=== PATIENT | female | born 1975 | race Two or more races ===

== ENCOUNTER 2016-11-17 19:15 | Emergency (ER) | payer MEDICAID ==
[~2016-11-17] VITALS: Ht 157.5 cm; Wt 68.0 kg
[~2016-11-17 19:15] MED LIST: BENAZEPRIL HCL20 MG ORAL; IBUPROFEN600 MG ORAL; PERCOCET 5-3251 EACH ORAL; TENORMIN50 MG ORAL
[2016-11-17 19:50] VITALS: BP 168/96
[2016-11-17] MEDS ORDERED: Tylenol #3 tab (300mg/30mg) PO ONE (20:00)
[2016-11-17 21:15] VITALS: BP 148/90
[2016-11-17] MEDS ORDERED: CYCLOBENZAPRINE10 MG ORAL (21:18)
[2016-11-17] MEDS ORDERED: IBUPROFEN600 MG ORAL (21:18)
[2016-11-17] MEDS ORDERED: OFLOXACIN5 ML BOTH EARS (21:25)
[2016-11-17 21:37] VITALS: BP 142/86
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
--- NOTE | 2016-11-18 10:49 | Diagnostic Imaging Report ---
Indication: Pain and trauma Technique: Continuous helical imaging of the cervical spine was obtained transaxially from the skull base to the upper thoracic spine. 2-D coronal and sagittal reformatted images were obtained. Total Dose length Product (DLP): [address] Dose Index Volume (CTDIvol): 16.47, 0.25 mGy Comparison: None Findings: There is no acute fracture or malalignment identified. There is no soft tissue swelling identified. 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 Some of the intervertebral discs show mild narrowing. Impression: No acute injury Mild spondylosis The CT scanner at [facility] is accredited by the [employer] and the scans are performed using dose optimization techniques as appropriate to a performed exam including Automatic Exposure control.
--- NOTE | 2016-11-18 11:35 | Diagnostic Imaging Report ---
Indication: Dyspnea Comparison: None A single view chest radiograph was obtained. Findings: Cardiomediastinal appearance is within normal limits for age. Pulmonary vascularity is appropriate. The diaphragmatic contour is smooth and costophrenic angles are sharp. No pleural effusions are identified. The bones are unremarkable. Impression: No acute findings
--- NOTE | 2016-11-18 11:36 | Diagnostic Imaging Report ---
Indication: Pain Findings: 3 views of the left shoulder were obtained. Alignment of the left shoulder is normal. No acute fracture is identified. Soft tissues are unremarkable. Impression: Negative left shoulder examination
--- NOTE | 2016-11-18 11:39 | Diagnostic Imaging Report ---
Indication: Pain 3 views of the left knee were obtained. Findings: No acute fracture, malalignment, or joint effusion are identified. Joint space is relatively well-maintained. Bone mineralization is within normal limits for age. Impression: Negative exam
--- NOTE | 2016-11-18 11:40 | Diagnostic Imaging Report ---
Indication: Pain 3 views of the right knee were obtained. Findings: No acute fracture, malalignment, or joint effusion are identified. Joint space is relatively well-maintained. Bone mineralization is within normal limits for age. Impression: Negative exam
== END 2016-11-17 21:39 | disposition home or self-care (01) ==
LOC: EMR 19:55
DX: R07.89 Other chest pain (principal); H60.93 Unspecified otitis externa, bilateral; M25.512 Pain in left shoulder; M25.562 Pain in left knee; M25.561 Pain in right knee; V43.52XA Car driver injured in collision with other type car in traffic accident, initial encounter; Y92.488 Other paved roadways as the place of occurrence of the external cause; I10 Essential (primary) hypertension
CPT/HCPCS: 71010; 72125; 99284

== ENCOUNTER 2017-05-30 19:33 | Emergency (ER) | payer MEDICAID ==
[~2017-05-30] VITALS: Ht 154.9 cm; Wt 68.0 kg
[~2017-05-30 19:33] MED LIST changes: +CYCLOBENZAPRINE10 MG ORAL; +OFLOXACIN5 ML BOTH EARS
[2017-05-30] MEDS ORDERED: HYDROcodone/Acetamin 7.5/325 tab ORAL ONE (20:00)
--- NOTE | 2017-05-30 20:54 | Emergency Room Report ---
History of Present Illness General Chief Complaint: Lower Extremity Injury Source: Patient Present Illness HPI 42-year-old female presents to the emergency department complaining of : Medial left knee pain 2 days sudden onset after getting up from sitting on the ground any in style. Patient states that she took her [place] to the airport and there was no chairs so she sat on the ground and upon getting up she felt a pop and had acute onset of pain. Patient states pain is exacerbated upon bending her leg and walking. Patient states she is able to bear weight. She denies numbness tingling or skin color changes in the affected extremity. Denies previous injury to this leg. Denies numbness tingling or loss of sensation or gross motor movements of the extremities, incontinence of bowel or bladder. Denies CP, Palpitations, LOC, AMS, dizziness, Changes in Vision, Sensation, paresthesias, or a sudden severe headache. Allergies: Coded Allergies: No Known Allergies (Unverified , 10/25/12) Patient History Past Medical History: see triage record Past Surgical History: none Pertinent Family History: none Last Menstrual Period: "3 weeks ago" Now: No Reviewed Nursing Documentation: PMH: Agreed; PSxH: Agreed Nursing Documentation-PMH Hx Hypertension: Yes Review of Systems All Other Systems: negative except mentioned in HPI Physical Exam Vital Signs Date Time Temp Pulse Resp B/P (MAP) Pulse Ox O2 Delivery O2 Flow Rate FiO2 05/30/17 19:43 98.7 94 18 157/81 98 Room Air 98.8 Sp02 EP Interpretation: reviewed, normal General Appearance: no apparent distress, alert, GCS 15, non-toxic Head: normocephalic, atraumatic ENT: hearing grossly normal, normal voice Neck: full range of motion Respiratory: lungs clear, normal breath sounds, speaking full sentences Cardiovascular #1: regular rate, rhythm, no edema Rectal: deferred Genitourinary: normal inspection Musculoskeletal: back normal, gait/station normal - compensation noted favoring the left leg. ambulatory ., normal range of motion, non-tender, other - no increased laxity upon varus or valgus stressing, negative anterior and posterior drawer signs of the Left knee, TTP to the medial aspect of the left knee. , tender - medial aspect of the left knee, no palpable posterior pulse. Neurologic: alert, oriented x3, responsive, motor strength/tone normal, sensory intact, speech normal, grossly normal Psychiatric: judgement/insight normal Skin: normal color, no rash, warm/dry, well hydrated Medical Decision Making PA Attestation Dr. russell is my supervising Physician whom patient management has been discussed with. Diagnostic Impression: Primary Impression: Knee pain, acute Qualified Codes: M25.562 - Pain in left knee Additional Impressions: Left knee sprain Qualified Codes: S83.412A - Sprain of medial collateral ligament of left knee , initial encounter Knee MCL sprain Qualified Codes: S83.412A - Sprain of medial collateral ligament of left knee , initial encounter ER Course 42-year-old female presents to the emergency department complaining of : Medial left knee pain 2 days sudden onset after getting up from sitting on the ground any in style. Patient states that she took her mother to the airport and there was no chairs so she sat on the ground and upon getting up she felt a pop and had acute onset of pain. Patient states pain is exacerbated upon bending her leg and walking. Patient states she is able to bear weight. She denies numbness tingling or skin color changes in the affected extremity. Denies previous injury to this leg. Denies numbness tingling or loss of sensation or gross motor movements of the extremities, incontinence of bowel or bladder. Denies CP, Palpitations, LOC, AMS, dizziness, Changes in Vision, Sensation, paresthesias, or a sudden severe headache. Ddx considered but are not limited to Fracture, dislocation, contusion, Sprain/ Strain/Spasm just to name a few. Vital signs: are WNL, pt. is afebrile H&PE are most consistent with musculoskeletal injury will perform imaging to r/ o fractures/dislocations. ORDERS: - X-ray Left Knee 3 - negative for fx, Dislocation, or significant soft tissue injury, per preliminary read in ED, and signed by YEHUDA Pino, my supervising physician has reviewed, and agrees with my interpretation. ED INTERVENTIONS: - Dalbo PO -Knee Immobilizer splint applied to the [ ] Knee by mosaic technician. Pt. remains neurovascularly intact. --Patient is provided with crutches and instructed on their use DISCHARGE: At this time pt. is stable for d/c to home. Will provide printed patient care instructions, and any necessary prescriptions. Care plan and follow up instructions have been discussed with the patient prior to discharge. Other X-Ray Diagnostic Results Other X-Ray Diagnostic Results : X-Ray ordered: Left Knee # of Views/Limited Vs Complete: 3 View Indication: Pain EP Interpretation: Yes PA Xray: Interpretation reviewed, by supervising MD, and agrees with findings. Interpretation: no dislocation, no soft tissue swelling Last Vital Signs Date Time Temp Pulse Resp B/P (MAP) Pulse Ox O2 Delivery O2 Flow Rate FiO2 05/30/17 20:36 98.7 05/30/17 19:43 94 18 157/81 98 Room Air Disposition: HOME, SELF-CARE Condition: Stable Scripts Acetaminophen* (TYLENOL EXTRA STRENGTH*) 500 Mg Tablet 500 MG ORAL Q6H, #20 TAB 0 Refills Prov: Virgen Pino 05/30/17 Referrals: [facility],REFERRING (PCP) Patient Instructions: Knee Sprain Additional Instructions: Take medications as directed. Follow up with an [facility] in 3-5 days. If your symptoms persist, may require more advanced imaging. --Please review list of primary care clinics, if you do not already have a primary care provider who can give you an Orthopedic Referral. Return sooner to ED if new symptoms occur, or current symptoms become worse. Do not drink alcohol, drive, or operate heavy machinery while taking Dalbo as this may cause drowsiness. - Please note that this Emergency Department Report was dictated using [facility] [employer] technology software, occasionally this can lead to erroneous entry secondary to interpretation by the dictation equipment. Virgen Pino May 30, 2017 20:54
[2017-05-30] MEDS ORDERED: TYLENOL EXTRA500 MG ORAL (20:55)
[2017-05-30 21:10] VITALS: BP 157/81
--- NOTE | 2017-05-31 11:06 | Diagnostic Imaging Report ---
. Indications: Reason For Exam: PAIN Technique: Three views of the left knee Comparison: None Findings: No acute fractures. No dislocations. Joint spaces are preserved. No radiopaque foreign body. Impression: No acute process
== END 2017-05-30 21:10 | disposition home or self-care (01) ==
LOC: EMR 20:21
DX: S83.412A Sprain of medial collateral ligament of left knee, initial encounter (principal); X50.9XXA Other and unspecified overexertion or strenuous movements or postures, initial encounter; Y92.520 Airport as the place of occurrence of the external cause; I10 Essential (primary) hypertension
CPT/HCPCS: 99283